=== PATIENT | female | born 1940 | race Caucasian/White ===

== ENCOUNTER 2017-10-21 19:26 | Emergency (ER) | payer OTHER ==
[~2017-10-21] VITALS: Ht 165.1 cm; Wt 84.5 kg
[2017-10-21 20:26] LABS: HEMATOCRIT 36.8 % (36.0-46.0); HEMOGLOBIN 13.2 G/DL (11.9-15.5); MCH 34.4 PG (29.0-34.0); MCHC 35.9 G/DL (30.0-36.0); MCV 95.8 FL (83-99); PLATELET COUNT 265 K/uL (156-360); RBC DIS.WIDTH-CV 12.2 % (11.8-14.6); RBC DIS.WIDTH-SD 42.8 % (39-53); RED BLOOD COUNT 3.84 M/uL (3.80-5.20); WHITE BLOOD COUNT 6.5 K/uL (4.1-10.2)
[2017-10-21 20:37] LABS: CHLORIDE 100 mEq/L (99-109); POTASSIUM 3.8 mEq/L (3.7-5.4); SODIUM 136 mEq/L (136-147)
[2017-10-21 20:39] LABS: GLUCOSE 120 mg/dL (70-99)
[2017-10-21 20:43] LABS: CREATININE 0.8 mg/dL (0.6-1.3); GFR ESTIMATE (CALCULATED) > 59 mL/min/
[2017-10-21 20:44] LABS: UREA NITROGEN (BUN) 21 mg/dL (9-23)
[2017-10-21 20:51] LABS: TROP-I INTERPRETATION NEGATIVE; TROPONIN-I < 0.01 ng/mL (0.0-0.30)
[2017-10-21] MEDS ORDERED: ANTIVERT12.5 MG PO (22:25)
[2017-10-22 00:10] VITALS: BP 159/89
== END 2017-10-22 00:10 | disposition home or self-care (01) ==
LOC: EME 19:26
PROVIDERS: Emergency Medicine
DX: R42 Dizziness and giddiness (principal); I10 Essential (primary) hypertension; R73.03 Prediabetes; Z90.49 Acquired absence of other specified parts of digestive tract; Z90.710 Acquired absence of both cervix and uterus; Z88.0 Allergy status to penicillin
CPT/HCPCS: 70450; 71045; 80048; 84484; 85027; 93005; 99281; 99285; J7030